=== PATIENT | male | born 1945 | race Caucasian/White ===

== ENCOUNTER 2024-05-17 08:09 | Outpatient (AMB) | payer MEDICARE, SELFPAY ==
--- NOTE | 2024-05-17 08:22 | A.OFFVIS_ITS ---
Vital Signs 05/17/24 09:00 Height 5 ft 4.5 in Weight 211 lb BMI 35.7 BP 132/76 Blood Pressure Location Lt brachial Position Sitting Pulse 62 Pulse Oximetry (%) 96 Oxygen Delivery Method Room Air Intake Visit Reasons: Hx Colon Polyps Intake Note: Patient new consult for Hx of Colon polyps/ 4th pre colonoscopy screening. Patient denies any GI issues. Doctor Podiatric Medicine Required: No Accompanied by: Self / Same As Patient Allergies No Known Allergies Allergy (Unverified 10/28/19 18:30) pollen Allergy (Unknown, Uncoded 01/27/19 00:00) Medication List - Last Reconciled 05/17/24 by Rachael Funez, [employer]- amlodipine 10 mg PO DAILY ammonium lactate 12% 1 appl topical DAILY aspirin (Adult Aspirin Regimen) 81 mg PO DAILY atorvastatin 10 mg PO BEDTIME bisacodyl (Dulcolax (bisacodyl)) 20 mg (4 x 5 mg) PO ONCE 1 day blood-glucose meter (FreeStyle Lite Meter kit) As directed clotrimazole 1% 1 appl topical BID doxazosin 8 mg PO BEDTIME enalapril maleate 20 mg PO DAILY gabapentin 300 mg PO DAILY hydrochlorothiazide 25 mg PO DAILY ibuprofen 800 mg PO Q8H metformin 500 mg PO DAILY metoprolol succinate ER 100 mg PO DAILY polyethylene glycol 3350 (Miralax) 238 grams PO ONCE polyvinyl alcohol 1.4% (Artificial Tears (polyvinyl alcohol)) 1 drp ophthalmic (eye) BID-QID PRN HPI HPI Hx Colon Polyps: Details: 79 year old? male with past medical history of hypertension, hyperlipidemia, diabetes, BPH, PVD is here today for pre colonoscopy screening.? Patient was sent to us by his PCP.? Last colonoscopy in January [address] Oshea, one tubular adenoma found and recommendation was made for 5 year follow-up.? Patient denies any gastrointestinal symptoms in the past or at present.? Admits to having trouble with acid reflux in the past and was on omeprazole, however has not needed it to take medication any more as his symptoms resolved. Patient denies any dyspepsia, dysphagia or odynophagia. Denies melena, hematochezia, unintentional weight loss or ribbon like stools. Patient's grandfather of colon cancer.? Denies history of difficulty with sedation or anesthesia in the past.? History of sleep apnea, uses CPAP occasionally. Denies any history of cardiac, renal, pulmonary, or hepatic disease.?? No history of infectious? diseases like hepatitis A, B, C, HIV or tuberculosis.? Patient is on low-dose aspirin [facility] Medical History (Updated 05/17/24 @ 09:30 by OSEI Rajan) PVD (peripheral vascular disease) BPH (benign prostatic hyperplasia) Diabetes mellitus Hyperlipidemia HTN (hypertension) Tubular adenoma of colon Surgical History (Updated 05/17/24 @ 09:09 by Bernadette Jarrett) History of colonoscopy Family History Paternal Grandfather Colon cancer Social History (Updated 05/17/24 @ 08:59 by Bernadette Jarrett) Household Members: Family Alcohol intake: former Patient Tobacco Use Status: Former Tobacco user Use of substances other than those prescribed or required for medical reasons: No Review of Systems Const Denies weight gain and Denies weight loss ENT Reports no additional complaints, Denies dysphagia and Denies odynophagia Card Reports no additional complaints Resp Reports no additional complaints GI Denies abdominal pain, Denies belching, Denies melena, Denies bloating, Denies change in bowel habits, Denies dysphagia, Denies excessive flatus, Denies dyspepsia, Denies heartburn, Denies diarrhea, Denies loose stools, Denies nausea, Denies odynophagia and Denies vomiting Reports no additional complaints Musc Reports no additional complaints Neuro Reports no additional complaints Psych Reports no additional complaints Endo Reports no additional complaints Physical Exam Vital Signs: Last Vital Signs Pulse 62 05/17/24 09:00 Pulse Ox 96 05/17/24 09:00 Oxygen Delivery Method Room Air 05/17/24 09:00 BMI result Body Mass Index 35.7 Const General: healthy appearing, no acute distress and well developed Nutritional Appearance: well nourished Orientation/consciousness: patient oriented x3 Resp Effort & Inspection: normal respiratory effort, able to speak in complete sentences, no tracheal deviation and symmetric chest movement Auscultation: clear to auscultation bilaterally Cardio Rate: regular rate GI Inspection: Yes normal to inspection and No distended Palpation (GI): Soft to palpation, not firm, nontender and No hepatosplenomegaly present Auscultation: normal bowel sounds General: Yes no CVA tenderness Back/Spine/Pelvis Back: no CVA tenderness Skin General skin exam: elasticity normal, turgor normal and dry skin Neuro General: patient oriented x3 Psych Appearance: grossly normal Mental Status: mental status grossly normal Assessment & Plan Assessment & Plan (1) Screen for colon cancer: Code(s): Z12.11 - Encounter for screening for malignant neoplasm of colon Plan Patient denies any GI, cardiac or respiratory symptoms.? Denies any issues with anesthesia in the past.? History of sleep apnea, uses CPAP sometimes.? No history infectious diseases in the past or present.? Not on any anticoagulation therapy.? Family history of CRC? Patient denies melena, hematochezia, unintentional weight loss or ribbon like stools.? Discussed at length the pre- procedure,? prep, diet & medications as well as what to expect prior, during and after the procedure.?? Stressed the importance of good bowel prep.? Recommended the use of Vaseline or Calmoseptine OTC & baby wipes with bowel movements to promote comfort.? ?Patient verbalizes understanding and agrees to plan of care.? He was given the opportunity to ask questions and all questions answered.? We will see him after the procedure.? Medications: New bisacodyl (Dulcolax (bisacodyl)) take 4 tabs at noon the day before your colonoscopy 20 mg (4 x 5 mg) PO ONCE 1 day 4 tabs 0RF Z12.11 - Encounter for screening for malignant neoplasm of colon polyethylene glycol 3350 (Miralax) As directed by gastroenterology department at [facility] 238 grams PO ONCE 238 grams 0RF Z12.11 - Encounter for screening for malignant neoplasm of colon Coding Level of Care Code New Pt Level 3 (94874) Diagnoses Screen for colon cancer Z12.11 Time Spent (min) 40 Comment 30 minutes spent with patient and additional 10 minutes spent reviewing his records
--- OUTSIDE RECORDS SUMMARY | 2024-05-17 08:24 | XMS_ITS | Data Portability ---
Author Organization [facility], [facility] Address [address] [place] [address] Care Team Providers Care Aircraft Detail Draftsperson Name Role Phone JAVED BRICE General Surgeon BALDEMAR VARMA Court Manager EVGENY LONG Primary Care Provider [phone] Assessment Encounter Date Assessment Date Assessment LastModified by Organization Details LastModified Time 12/02/2023 12/02/2023 We completed your Medicare Wellness exam today. This was an opportunity to assess your overall well being including your ability to care for yourself, your mobility, memory, mental health, as well as your safety. Vision and Hearing are senses that are critically important as we age. When impaired, they can contribute to memory loss, falls, and make it harder to drive, talk to family and friends, and engage in the world. Please get your vision checked yearly and your hearing checked when you start to notice hearing loss. We discussed approaches to lowering your risk of heart disease and stroke . Your blood pressure is at goal. Your cholesterol is at goal. We discussed cancer screening you may need as well as vaccines to prevent infections. Colon Cancer : Your risk of colon cancer is higher than average due to personal history of colon polyps. Due for colorectal screenin. If you are not planning to have a colonoscopy please screen with stool cards yearly. Prostate Cancer : PSA testing for ages 55-69 risks and benefits discussed not needed due to age. Influenza Vaccine : Flu shot yearly. Tetanus Vaccine : Every 10 years. Due: 2033. The following vaccines are available from your pharmacy: Pneumonia Vaccine : PCV20: once after age 65. Shingles Vaccine : 2 shots after age 50. Covid Vaccine : Make sure you have received the most up to date covid vaccine. Your personal health goal for the year is: exercise more [email or web address] Not available 12/05/2023 02:31:52 03/02/2024 03/02/2024 Diabetes: A1c of 6.9 since last year. Morning blood glucose levels range from 90-154, higher when consuming sweets. No episodes of hypoglycemia or severe hyperglycemia reported. Hypertension: Blood pressure well controlled; readings in the office have remained stable and the denies any symptoms. Patient is on amlodipine twice daily and Hydrochlorothiaz ady. Return in June after the colonoscopy to discuss the next action of plan along with the evaluation of your next A1C. Can return sooner with any new concerns or questions. Ocular hypertension: Encourage patient to attend follow-up appointment with opthamology and continue prescribed eye drops. GERD: Patient reported a few isolated episodes of heartburn, particularly at night. Currently on Omeprazole daily. F/U: 4 months [email or web address] Not available 03/02/2024 11:12:22 04/29/2024 04/29/2024 Type 2 diabetes mellitus with peripheral neuropathy, pain right foot [email or web address] Not available 04/29/2024 12:23:03 Plan of Treatment Reminders Order Date Submit Date Provider Last Modified By Organization Details Last Modified Time Details Appointments Compr craig rivas Eye Exam, 20 Min 2024 09:50A M Angela Brooks, MELISA Not available Not available Not available LAB Follo w-Up 2024 08:30A M [facility] Lab Not available Not available Not available Lavell ess Visit 30 2024 09:30A M CHRISTY LONG NP Not available Not available Not available Lab HbA1c (hemo globi n A1c), blood 2024 025 [facility], [address] [place], [address], 03/02/2024 10:42:28 hemog lobin A1C/h emogl obin total , QN, blood [address] [facility], [address] [place], [address], 12/02/2023 13:38:49 Referral podia trist refer ral - recur ring foot callu s media l foot 2023 [email or web address] Baldemar Varma DPM, [address] [place], [address], 12/03/2023 09:57:13 ophth layla ogist refer ral - glauc cornell suspe ct: OHTN Tmax 26 OU. borde rline RNFL OU on OCT. mild VF defec t OD , scatt ered defec ts OS. pleas e evalu ate. thank you 2023 [facility], [address] [place], [address], 02/26/2024 19:33:03 Procedures None recor ded. Surgeries None recor ded. Imaging None recor ded. Medication Orders metfo rmin 500 mg table t 2023 [id number], [address] [place], [place], [id number], 12/02/2023 12:57:47 Patient TargetsNo targets recorded. Patient Instructions Encounter Date Encounter Id Patient Instructions Last Modified By Organization Details Last Modified Time 04/29/2024 [id number] Dispensed order for x-ray evaluation. Patient declines prescription for antifungal cream. Will contact patient regarding results. jarod Not available 04/29/2024 12:23:37 Reason for Referral Tip Inserter Referral for Glaucoma suspect glaucoma suspect: OHTN Tmax 26 OU. borderline RNFL OU on OCT. mild VF defect OD , scattered defects OS. please evaluate. thank you Referring Physician: Angela Brooks, Optometry, Encounter Date: 11/11/2023 [address] Manager Referral for Foot callus recurring foot callus medial foot Referring Physician: Leena Ruiz, Family Medicine, Encounter Date: 12/02/2023 Results Created Date Observation Date Name Description Value Unit Range Abnormal Flag Note LastModifiedBy Organization Detail LastModifiedTime 10/20/19 24 10/21/2023 MICRO ALBUM IN/CR EATIN INE RATIO PANEL , URINE microalbumin 51.4 mg/L 1.3-20 .0 high Not Available [facility] [address] [place] [address], [address], 10/21/2023 09:40:55 10/20/19 24 10/21/2023 MICRO ALBUM IN/CR EATIN INE RATIO PANEL , URINE creatinine urine 660.9 mg/dL 30.0-1 25.0 high VERD= Verif ied by Dilut ion. Not Available [address], [address], 10/21/2023 09:40:55 10/20/19 24 10/21/2023 MICRO ALBUM IN/CR EATIN INE RATIO PANEL , URINE microalb/cre at ratio 7.8 mg/g_ creat 0.0-29 .0 Not Available [address], [address], 10/21/2023 09:40:55 10/20/19 24 10/21/2023 COMP. METAB OLIC PANEL glucose 146 mg/dL 70-100 high Not Available [address], [address], 10/21/2023 12:09:05 10/20/19 24 10/21/2023 COMP. METAB OLIC PANEL BUN 14 mg/dL 7-18 Not Available [address], [address], 10/21/2023 12:09:05 10/20/19 24 10/21/2023 COMP. METAB OLIC PANEL creatinine 1.2 mg/dL 0.8-1. 3 Not Available [address], [address], 10/21/2023 12:09:05 10/20/19 24 10/21/2023 COMP. METAB OLIC PANEL B/C 11.7 ratio Not Available [address], [address], 10/21/2023 12:09:05 10/20/19 24 10/21/2023 COMP. METAB OLIC PANEL GFR >=60ML /MIN mL/mi n normal >=60m L/min - Sushila l or midly reduc ed <60mL /min- Decre ased kidne y funct ion <15mL /min - Kidne y failu re [facility] calcu lates estim ated Glome rular Filtr ation Rate (eGFR ) using the Chron ic Kidne y Disea se Epide miolo gy Colla borat ion (CKD- EPI) Equat ion (Margarita r et. al 2020) as recom lindsey d by the Natio nal Kidne y Found ation . eGFR is based on age, serum creat inine , and sex. CKD-E PI does not calcu late eGFR by race, does not apply to child savanah (age <18 years ), and shoul d not be used in pregn monalisa. Not Available [address], [address], 10/21/2023 12:09:05 10/20/19 24 10/21/2023 COMP. METAB OLIC PANEL sodium 143 mmol/ L 136-14 5 Not Available [address], [address], 10/21/2023 12:09:05 10/20/19 24 10/21/2023 COMP. METAB OLIC PANEL potassium 3.9 mmol/ L 3.5-5. 1 Not Available [address], [address], 10/21/2023 12:09:05 10/20/19 24 10/21/2023 COMP. METAB OLIC PANEL chloride 102 mmol/ L 96-107 Not Available [address], [address], 10/21/2023 12:09:05 10/20/19 24 10/21/2023 COMP. METAB OLIC PANEL anion gap 12.2 5.0-15 .0 Not Available [address], [address], 10/21/2023 12:09:05 10/20/19 24 10/21/2023 COMP. METAB OLIC PANEL CO2 29 mmol/ L 21-32 Not Available [address], [address], 10/21/2023 12:09:05 10/20/19 24 10/21/2023 COMP. METAB OLIC PANEL calcium 9.2 mg/dL 8.5-10 .3 Not Available [address], [address], 10/21/2023 12:09:05 10/20/19 24 10/21/2023 COMP. METAB OLIC PANEL total protein 7.9 g/dL 6.4-8. 2 Not Available [address], [address], 10/21/2023 12:09:05 10/20/19 24 10/21/2023 COMP. METAB OLIC PANEL albumin 4.3 g/dL 3.4-5. 0 Not Available [address], [address], 10/21/2023 12:09:05 10/20/19 24 10/21/2023 COMP. METAB OLIC PANEL globulin 3.6 g/dL Not Available [address], [address], 10/21/2023 12:09:05 10/20/19 24 10/21/2023 COMP. METAB OLIC PANEL A/G 1.2 ratio 0.8-2. 0 Not Available [address], [address], 10/21/2023 12:09:05 10/20/19 24 10/21/2023 COMP. METAB OLIC PANEL total bilirubin 0.80 mg/dL 0.00-1 .00 Not Available [address], [address], 10/21/2023 12:09:05 10/20/19 24 10/21/2023 COMP. METAB OLIC PANEL AST 20 U/L 0-37 Not Available [address], [address], 10/21/2023 12:09:05 10/20/19 24 10/21/2023 COMP. METAB OLIC PANEL ALT 33 U/L 6-63 Not Available [address], [address], 10/21/2023 12:09:05 10/20/19 24 10/21/2023 COMP. METAB OLIC PANEL alk. phos. 57 U/L 50-136 Not Available [address], [address], 10/21/2023 12:09:05 12/02/19 24 12/02/2023 POCHA 1C POC HA1C 6.9 high Not Available [facility] [address] [place], [address], 12/02/2023 12:39:12 04/30/19 25 04/29/2024 XR, foot CLINIC AL HISTOR Y: Right foot pain TECHNI QUE: AP, obliqu e, and latera l views of the right foot obtain ed. COMPAR CASI: None. FINDIN GS: There is no acute fractu re or disloc ation. There is mild narrow ing of the right first metata rsal phalan geal joint. . There is extens evelyn hetero topic ossifi cation in the retroc alcane al region at the attach ment of the Achill es tendon . This can be seen with a histor y of trauma or microt rauma at the Achill es attach ment. There is a modera tely large planta r spur. IMPRES MARCELINA: Mild DJD first MTP joint. Small planta r spur. Hetero topic ossifi cation at the attach ment of the Achill es tendon consis tent with prior trauma Readivis [email or web address] Physic mallory: Jan Anderson [email or web address] [facility] (Imaging) [address], [place], [address], 04/30/2024 10:10:05 Result Notes None recorded. Problems Name Problem SNOMED Code Status Onset Date Resolution Date Notes Provider Name and Address Organization Details Recorded Time Benign essential hypertens ion 6494222 Active 2015 Zane Haque MD [address] [place] [address], [phone] , [facility] 6 11:10:25 Low back pain 125963101 Active 2015 Zane Haque MD [address] [place] [address], [address] , [facility] 6 11:12:31 Gastroeso phageal reflux disease 753381842 Active 2015 Zane Haque MD [address] [place] [address], [address] , [facility] 6 11:12:31 Benign prostatic hyperplas ia 087573515 Active 2015 Zane Haque MD [address] [place] [address], [address] , [facility] 6 11:12:34 Type 2 diabetes mellitus without complicat ion 597072656 Active 2016 Zane Haque MD [address] [place] [address], [phone] , [facility] 7 09:35:11 Morbid obesity 704064151 Active 2020 BMI > or = 35 plus other comorbidit ies. 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 Procedures Surgical History Date Name Laterality Status Provider Name and Address Organization Details Recorded Time 12/02/19 24 Medicare Wellness Visit completed Jazmin Luis MA [facility] 12/02/2023 12:11:54 12/02/19 24 Cardiovascular disease risk reduction counseling completed Leena maher PA-C [address] [place], [address], [facility] 12/05/2023 02:33:13 11/11/19 24 Gonioscopy completed Angela Brooks, OD [address] [place], [address], [facility] 11/13/2023 18:03:54 11/11/19 24 Pachymetry completed Angela Brooks, OD [address] [place], [address], [facility] 11/13/2023 18:04:15 10/29/19 24 Visual field comprehensive completed Angela Krugerile, OD [address] [place], [address], [facility] 11/13/2023 18:10:17 10/16/19 24 Gonioscopy completed Angela Brooks, OD [address] [place], [address], [facility] 10/20/2023 17:42:06 10/16/19 24 Optical Coherence Tomography (Optic Nerve) completed Angela Brooks, OD [address] [place], [address], [facility] 10/20/2023 17:41:24 08/21/19 23 Medicare Wellness Visit completed Mary Alice Monique Lisy [facility] 08/19/2022 14:09:20 08/21/19 23 Medicare Annual Wellness Visit completed Mary Alice Monique Lisy [facility] 08/20/2022 10:42:16 09/12/19 21 Medicare Wellness Visit completed Savi Traore LPN [facility] 09/11/2020 11:51:07 09/12/19 21 prevention-cardio vascular risk reduction counseling completed Savi Traore LPN [facility] 09/11/2020 11:51:07 09/12/19 21 prevention-annual alcohol misuse screening completed Savi Traore LPN [facility] 09/11/2020 11:51:07 07/28/19 21 Refraction completed Angela Brooks OD [address] [place], [address], [facility] 07/27/2020 10:50:44 05/16/19 21 prevention-cardio vascular risk reduction counseling completed Dru Grimes [facility] 05/15/2020 09:33:00 05/16/19 21 prevention-annual alcohol misuse screening completed Dru Grimes [facility] 05/15/2020 09:33:00 02/09/20 19 POC HA1C completed Lian Goodson [facility] 02/08/2019 08:16:38 10/15/19 18 Medicare Wellness Visit completed DAVID Contreras [facility] 10/14/2017 08:42:31 03/10/19 18 Medicare Wellness Visit completed Theresa Carmen [facility] 03/10/2017 09:48:07 01/19/20 16 Smoking cessation counseling completed Zane Haque MD [address] [place] [address], [address], [facility] 01/19/2016 11:17:01 01/19/20 16 Medicare Wellness Visit completed Antoinette Bautista [facility] 01/19/2016 10:47:55 07/28/19 16 Refraction completed Liberty Todd [facility] 07/28/2015 11:30:23 Imaging Results Imaging Date Name Status LastModified by Organiz ation Details LastModified Time 04/29/2024 XR, foot completed [email or web address] [facility] (Imaging) [address] [place], [address], 04/30/2024 10:10:05 Procedure Notes None recorded. Medical Equipment None Reported. Allergies No known drug allergies Medications Name Sig Start Date Stop Date Status Note LastModified by Organization Details LastModified Time metformin 500 mg tablet TAKE 1 TABLET BY MOUTH TWICE DAILY active Not Available Not Available No t Available neomycin-p olymyxin-h ydrocort 3.5 mg/mL-10,0 00 unit/mL-1 % ear solution 07/16 completed Not Available Not Available Not Available ammonium lactate 12 % lotion Apply 1 applicat ion every day by topical route. 07/16 completed 07/16/16- pt no longer using.s g Not Available Not Available Not Available atorvastat in 10 mg tablet TAKE 1 TABLET BY MOUTH EVERY DAY active Not Available Not Available No t Available azithromyc in 250 mg tablet 01/18 completed Not Available Not Available Not Available ibuprofen 800 mg tablet PRN active Not Available Not Available Not Available metoprolol tartrate 100 mg tablet TAKE 1 TABLET BY MOUTH TWICE DAILY active Not Available Not Available No t Available enalapril maleate 20 mg tablet TAKE 1 TABLET BY MOUTH TWICE DAILY active Not Available Not Available No t Available FreeStyle Lancets 28 gauge USE TO CHECK BLOOD SUGARS ONCE TO TWICE A DAY active Not Available Not Available No t Available aspirin 81 mg tablet,del ayed release TAKE 1 TABLET BY MOUTH EVERY DAY 2024 active Not Available Not Available Not Avai lable tramadol 50 mg tablet Take 1 tablet every day by oral route as needed. 09/10 completed Not Available Not Available Not Available Deep Sea Nasal 0.65 % spray aerosol 10/14 completed Not Available Not Available Not Available doxazosin 8 mg tablet TAKE 1 TABLET BY MOUTH EVERY DAY active Not Available Not Available No t Available amlodipine 10 mg tablet TAKE 1 TABLET BY MOUTH EVERY DAY active Not Available Not Available No t Available doxycyclin e monohydrat e 100 mg capsule TAKE 1 CAPSULE BY MOUTH TWICE DAILY FOR 7 DAYS 09/11 completed Not Available Not Available Not Available clotrimazo le-betamet hasone 1 %-0.05 % topical cream APPLY TOPICALL Y TO THE AFFECTED AND SURROUND ING AREAS TWICE DAILY IN THE MORNING AND IN THE EVENING FOR 2 WEEKS active Not Available Not Available No t Available gabapentin 300 mg capsule Take 1 capsule every day by oral route at bedtime. 2017 active Not Available Not Available Not Avai lable omeprazole 20 mg capsule,de layed release TAKE 1 CAPSULE BY MOUTH EVERY DAY NEEDED active Not Available Not Available No t Available ammonium lactate 12 % topical cream [apply bid], rub in thorough ly to dry skin on feet active no longer using 4/ES Not Available Not Available Not Available hydrochlor othiazide 25 mg tablet TAKE 1 TABLET BY MOUTH EVERY DAY active Not Available Not Available No t Available ibuprofen 600 mg tablet Take 1 tablet 3 times a day by oral route as needed for 90 days. 11/02 completed using 800mg 06/15/21 am Not Available Not Available Not Available ketoconazo le 2 % topical cream YVONNE EXT AA QD 07/16 completed Not Available Not Available Not Available clotrimazo le 1 % topical cream Apply 1 applicat ion twice a day by topical route for 14 days. 2017 active PRN Not Available Not Available Not Avai lable Artificial Tears (polyvinyl alcohol) 1.4 % eye drops Apply 2 drops 3 times a day by ophthalm ic route as needed. 2017 active Not Available Not Available Not Avai lable neomycin-p olymyxin-h ydrocort 3.5 mg-10,000 unit/mL-1 % ear drops,susp INSTILL 4 DROPS INTO AFFECTED EAR(S) BY OTIC ROUTE 3 TIMES PER DAY for 5 DAYS 03/19 completed Not Available Not Available Not Available FreeStyle Lite Meter kit USE TO CHECK BLOOD SUGAR UTD active Not Available Not Available No t Available FreeStyle Lite Strips TEST ONCE DAILY DIRECTED active Not Available Not Available No t Available GaviLyte-G 236 gram-22.74 gram-6.74 gram-5.86 gram oral solution MIX AND DRINK UTD 05/15 completed Not Available Not Available Not Available Fluzone High-Dose 2015- (PF) 180 mcg/0.5 mL intramuscu lar syringe TO BE ADMINIST ERED BY PHARMACI ST FOR IMMUNIZA TION active Not Available Not Available No t Available Shingrix (PF) 50 mcg/0.5 mL intramuscu lar suspension , kit ADM 0.5ML IM UTD 05/15 completed Not Available Not Available Not Available Vitals Date Recorded Body height Body mass index (BMI) Body weight Heart rate Oxygen saturation Oxygen saturation in Arterial blood by Pulse oximetry Systolic blood pressure Diastolic blood pressure Provider Name and Address Organization Details Last Updated DateTime 4 163.83 cm 38.2 kg/m2 139229. 88 g 56 /min 97 % 97 % 126 mm[Hg] 80 mm[Hg] Jazmin Luis MA [facility] 4 12:28:03 Date Recorded Body height Body mass index (BMI) Body weight Oxygen saturation Oxygen saturation in Arterial blood by Pulse oximetry Heart rate Body temperature Systolic blood pressure Diastolic blood pressure Provider Name and Address Organization Details Last Updated DateTime 5 163.83 cm 36.6 kg/m2 28228.7 5 g 97 % 97 % 58 /min 97.5 [degF] 130 mm[Hg] 80 mm[Hg] Kim Mari MA [facility] 5 10:26:37 Date Recorded Body height Body mass index (BMI) Body weight Provider Name and Address Organization Details Last Updated DateTime 04/29/2024 163.83 cm 36.5 kg/m2 90913.95 g Ondina Xiong LPN [facility] 04/29/2024 11:49:33 Social History Question Answer Notes LastModified by Organizat ion Details LastModified Time Tobacco Smoking Status Former Smoker quit 12 years [facility] 12:25:28 What Is Your Level Of Alcohol Consumption? None Information not available 07/17/2015 Do You Wear A Helmet When Biking? No [email or web address] Information not available 09/11/2020 What Is Your Level Of Caffeine Consumption? Moderate 1 Cup AM [email or web address] Information not available 05/15/2020 How Much Tobacco Do You Chew? None [email or web address] Information not available 04/17/2016 What Type Of Diet Are You Following? REGULAR Information not available 07/17/2015 Which Illicit Or Recreational Drugs Have You Used? No Information not available 10/14/2017 Do You Or Have You Ever Used E-cigarettes Or Vape? Never Used Electronic Cigarettes Information not available 11/09/2018 What Is Your Occupation? Retired Information not available 10/14/2017 Have There Been Any Changes To Your Family Or Social Situation? No Information not available 08/20/2022 When Did You Quit Smoking? 6-10yearssinc [email or web address] Information not available 11/09/2018 How Many Days In The Past Year Have You Had A Heavy Drinking Consumption (4+ Female, 5+ Male)? 0 [facility] not available 07/17/2015 Are There Any Guns Present In Your Home? No [facility] Information not available 07/17/2015 Do You Use Insect Repellent Routinely? Yes [email or web address] Information not available 09/11/2020 Live Alone Or With Others? With Others [facility] Information not available 07/17/2015 Patient Has Health Care Proxy Signed And In Chart No [email or web address] Information not available 11/13/2017 CCM Consent Discussion 06/15/2021 [email or web address] Information not available 07/19/2021 Marital Status [facility] Info rmation not available 07/17/2015 What Was The Date Of Your Most Recent Tobacco Screening? 03/02/2024 [email or web address] Information not available 03/02/2024 How Many Children Do You Have? 6 One Child [facility] Information not available 07/17/2015 What Is Your Relationship Status? Lives With Information not available 08/20/2022 Do You Use Your Seat Belt Or Car Seat Routinely? Yes [email or web address] Information not available 09/11/2020 Seat Belts Used Routinely Yes [facility] Information not available 07/17/2015 Smoke Alarm In Home Yes [facility] Information not available 07/17/2015 Do You Have Smoke And Carbon Monoxide Detectors In Your Home? Yes [email or web address] Information not available 12/02/2023 Are You Passively Exposed To Smoke? No [email or web address] Information not available 09/11/2020 Do You Or Have You Ever Used Smokeless Tobacco? Never Used Smokeless Tobacco Information not available 11/09/2018 How Much Tobacco Do You Smoke? 0.5 PPD [email or web address] Information not available 12/02/2023 General Stress Level Medium Information not available 10/14/2017 Do You Use Any Illicit Or Recreational Drugs? No [email or web address] Information not available 12/02/2023 Do You Use Sunscreen Routinely? Yes Information not available 09/11/2020 Do You Or Have You Ever Used Any Other Forms Of Tobacco Or Nicotine? No [email or web address] Information not available 12/02/2023 Sex: Male Functional Status None recorded. Mental Status None recorded. Family History Nothing Reported. Medical History Condition Response Diabetes Type II Y Colon Polyps Y Hyperlipidemia Y Heart Disease N Hypertension Y Glaucoma Y Chronic Back Pain Y Immunizations Vaccine Type Date Status Note Provider Nam e and Address Organization Details Recorded Time Influenza, high-dose, trivalent, PF 6 completed Not Available [facility] 02/27/2019 02:33:34 Pneumococcal conjugate PCV 13 6 completed Not Available [facility] 02/27/2019 02:20:41 Influenza, high-dose, trivalent, PF 7 completed Not Available [facility] 02/27/2019 02:22:00 pneumococcal polysaccharide PPV23 7 completed Not Available [facility] 02/27/2019 02:22:28 influenza, unspecified formulation 5 [facility] 10:35:33 Tdap 4 completed [facility] 08/11/2015 09:00:39 Hep B, unspecified formulation 3 completed [facility] 08/11/2015 09:01:22 Hep B, unspecified formulation 3 completed [facility] 08/11/2015 09:01:41 Hep A, adult 3 completed [facility] 08/11/2015 09:02:03 influenza, unspecified formulation 8 completed [facility] 01/16/2018 10:50:08 Influenza, split virus, quadrivalent, preservative 9 completed Zane Haque MD [address] [place] [address], [id number] 11/09/2018 09:37:05 zoster recombinant 0 completed Savi Traore LPN [facility] 09/11/2020 13:57:44 zoster recombinant 0 completed [facility] 09/11/2020 15:46:40 Td (adult), 2 Lf tetanus toxoid, preservative free, adsorbed 4 completed Leena Ruiz PA-C [address] [place] [address], [id number], [facility] 06/16/2023 10:02:47 Influenza, split virus, quadrivalent, preservative 1 completed [facility] 03/19/2021 08:56:36 COVID-19, mRNA, LNP-S, PF, 30 mcg/0.3 mL dose 1 completed [facility] 08/08/2021 09:06:32 COVID-19, mRNA, LNP-S, PF, 30 mcg/0.3 mL dose 1 completed [facility] 08/08/2021 09:06:40 COVID-19, mRNA, LNP-S, PF, 30 mcg/0.3 mL dose 2 completed [facility] 08/08/2021 09:06:55 COVID-19, mRNA, LNP-S, PF, 30 mcg/0.3 mL dose 2 completed [facility] 08/08/2021 09:07:07 influenza, unspecified formulation 3 completed [facility] 01/15/2023 09:21:00 influenza, unspecified formulation 4 completed [facility] 12/02/2023 12:26:57 Past Encounters Encounter ID Performer Location Encounter Start Date Encounter Closed Date Diagnosis/Indication Diagnosis SNOMED-CT Code Diagnosis ICD10 Code Diagnosis Note [id number] Zane Haque MD , [facility], [address] [place] [address] 07/17/2015 10:20:49 07/17/2015 11:05:53 Benign essential hypertension 8955040 I10 BP slightly elevated. Requested old records from [facility]. Will continue his anti-hyper tensive medication s. Check FLP and CMP. Denies CP/SOB/DRAKE . Benign pro static hyperplasia 857501507 N40.0 Patient with BPH on Doxazosin. No current urine obstructiv e symptoms. Denies hematuria or dysuria. Check PSA. Gastroesop hageal reflux disease 380205294 K21.9 Stable on occasional use of Omeprazole . No current abdominal pain. Denies BRBPR or melena. Low back pain 484328174 M54.5 Patient with chronic LBP. Undergone PT at [facility] without improvemen t. Will check L-spine X-day. Consider referral to Physiatry. Dry skin dermatitis 2600 35500 L85.3 Stable on Lactate lotion. 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 4 [id number] Zane Haque MD , [facility], [address] [place] [address] 10/20/2015 10:35:36 10/20/2015 11:19:29 Benign essential hypertension 1017499 I10 BP well controlled . Continue with current medication s and low salt diet. Active or passive immunization 850782100 Z23 Benign pro static hyperplasia 658111768 N40.0 Patient with BPH on Doxazosin. No current urine obstructiv e symptoms. Denies hematuria or dysuria. PSA within normal. Gastroesop hageal reflux disease 884034760 K21.9 Stable on occasional use of Omeprazole . No current abdominal pain. Denies BRBPR or melena. Low back pain 348677248 M54.5 Patient with chronic LBP. Undergone PT at [facility]. X-ray showed moderately severe facet arthropath y lower lumbar spine. Consider referral to Physiatry if symptoms worsen. Sleep apnea 52111991 G47 .30 Patient with increased snoring and sleep apnea symptoms noticed by his partner. Also with increased daytime somnolence . Referral for sleep study. Tinea cruris 892215071 B 35.6 Involving the bilateral inguinal areas. Advised to keep the areas clean and dry. Treat with Clotrimazo le topical. Hyperglycemia 87743175 R 73.9 Elevated FBS. Will check Hgb A1c (separatel y ordered). Leukopenia 51178752 D72. 819 Reports recent URI symptoms. Repeat CBC ordered. [id number] Zane Haque MD , [facility], [address] [place] [address] 01/19/2016 10:37:04 01/22/2016 12:46:45 Adult health examination 388463013 Z00.00 See Risk Assessment and Lifestyle Change Counseling section above. Home/vehic le/sexual safety reviewed. States his last colonoscop y was 3 years ago at [facility] (Dr. Brice). Recommende d surveillan ce in 5 years. Routine eye exam and dental care discussed. Influenza, Tdap and PNA vaccines UTD. Counseling 304533296 Z71 .9 Sleep apnea 05359638 G47 .30 Patient with increased snoring and sleep apnea symptoms noticed by his partner. Also with increased daytime somnolence . Had sleep study done last week with LUTHER diagnosis. Recommende d CPAP with 9cm H2O setting. Being arranged by Sleep Medicine. Gastroesop hageal reflux disease 249356443 K21.9 Stable on occasional use of Omeprazole . No current abdominal pain. Denies BRBPR or melena. Tinea cruris 489124570 B 35.6 Involving the bilateral inguinal areas. Advised to keep the areas clean and dry. Treat with Clotrimazo le topical. Benign ess ential hypertension 3718550 I10 BP well controlled . Continue with current medication s and low salt diet. Low back pain 303446678 M54.5 Patient with chronic LBP. Undergone PT at [facility]. X-ray showed moderately severe facet arthropath y lower lumbar spine. Consider referral to Physiatry if symptoms worsen. Benign pro static hyperplasia 287922037 N40.0 Patient with BPH on Doxazosin. No current urine obstructiv e symptoms. Denies hematuria or dysuria. PSA within normal. Type 2 kayley betes mellitus without complication 523647058 E11.9 Previously had elevated FBS. Hgb A1c 6.7 (10/2015), but now 6.5 (01/2016). Lifestyle modificati on recommende d. Cigarette smoker 3794769 7 F17.210 Encouraged cessation. Goal setting and behavioral modificati on discussed. Tobacco user 949461819 Z 72.0 Screening for malignant neoplasm of lung 829326015 Z12.2 Long history of tobacco use with 30 pack year history. Quit 3 years ago. Will check low-dose Chest CT for lung CA screening. Balanitis 35230217 N48.1 Encouraged to use Clotrimazo le. Venereal d isease screening 324495909 Z11.3 Safe sex discussed. Patient gives permission to send normal results via patient portal or by mail. [id number] Zane Haque MD , [facility], [address] [place] [address] 04/17/2016 09:10:02 04/17/2016 09:42:03 Sleep apnea 11522658 G47.30 Patient with increased snoring and sleep apnea symptoms noticed by his partner. Also with increased daytime somnolence . Had sleep study done last week with LUTHER diagnosis. Recommende d CPAP with 9cm H2O setting. Being arranged by Sleep Medicine. Gastroesop hageal reflux disease 940490627 K21.9 Stable on occasional use of Omeprazole . No current abdominal pain. Denies BRBPR or melena. Tinea cruris 021242499 B 35.6 Involving the bilateral inguinal areas. Advised to keep the areas clean and dry. Using Ketoconazo le topical. Benign ess ential hypertension 5475220 I10 BP well controlled . Continue with current medication s and low salt diet. Low back pain 105021240 M54.5 Patient with chronic LBP. Undergone PT at [facility]. X-ray showed moderately severe facet arthropath y lower lumbar spine. Consider referral to Physiatry if symptoms worsen. Benign pro static hyperplasia 490342002 N40.0 Patient with BPH on Doxazosin. No current urine obstructiv e symptoms. Denies hematuria or dysuria. PSA within normal. Type 2 kayley betes mellitus without complication 633565821 E11.9 Previously had elevated FBS. Hgb A1c 6.7 (10/2015), but now 6.5 (01/2016). Lifestyle modificati on recommende d. Cigarette smoker 5170707 7 F17.210 Completely quit smoking. 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 Tobacco user 389453465 Z 72.0 Screening for malignant neoplasm of lung 931312602 Z12.2 Long history of tobacco use with 30 pack year history. Quit 3 years ago. Ordered low-dose Chest CT for lung CA screening. [id number] Zane Haque MD , [facility], [address] [place] [address] 07/16/2016 09:18:34 07/16/2016 09:51:43 Sleep apnea 56254788 G47.30 Patient with increased snoring and sleep apnea symptoms noticed by his partner. Also with increased daytime somnolence . Had sleep study done with LUTHER diagnosis. Recommende d CPAP with 9cm H2O setting. Being arranged by Sleep Medicine/C CA. Gastroesop hageal reflux disease 332342000 K21.9 Stable on occasional use of Omeprazole . No current abdominal pain. Denies BRBPR or melena. Benign ess ential hypertension 8304392 I10 BP well controlled . Continue with current medication s and low salt diet. Low back pain 567664458 M54.5 Patient with chronic LBP. Undergone PT at [facility]. X-ray showed moderately severe facet arthropath y lower lumbar spine. Will consider referral to Physiatry if symptoms worsen, but patient would like to defer at this time. Will treat with Tramadol prn. Advised to use the medication sparingly. Benign pro static hyperplasia 372435700 N40.0 Patient with BPH on Doxazosin. No current urine obstructiv e symptoms. Denies hematuria or dysuria. PSA within normal. Type 2 kayley betes mellitus without complication 471284695 E11.9 Previously had elevated FBS. Hgb A1c 6.7 (10/2015), but now 6.5 (01/2016). Home BS well controlled . Check Hgb A1c today. Lifestyle modificati on recommende d. Cigarette smoker 5129955 7 F17.210 Completely quit smoking. 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 [id number] VESTA Castillo , [facility], [address] [place] [address] 09/10/2016 07:51:44 09/10/2016 08:46:36 Type 2 diabetes mellitus without complication 250886346 E11.9 Will start METFORMIN 500 mg BID, discussed use of med as well as potential adverse SE, continue to check BS at home TID, labs ordered as written below & plan to f/u w/FK as scheduled. Agrees w/plan [id number] Zane Haque MD , [facility], [address] [place] [address] 10/11/2016 10:01:53 10/11/2016 10:44:37 Type 2 diabetes mellitus without complication 456853718 E11.9 Previously had Hgb A1c 6.5 (01/2016). Unfortunat [place], he failed to control his BS with lifestyle modificati on as his Hgb A1c went up to 9.2 (09/2016). Fasting BS has been ranging 110-180 at home since starting his Metformin. Initial loose stool with Metformin, but better tolerated now. Referred to DM Educator, but declined as he states his has been a diabetic for over 30 years. Advised to continue with low carbohydra te diet and exercise. Check Hgb A1c in 3 months. Lifestyle modificati on recommende d. Active or passive immunization 512900738 Z23 [id number] Zane Haque MD , [facility], [address] [place] [address] 01/10/2017 10:34:44 01/10/2017 11:18:58 Active or passive immunization 857276577 Z23 Type 2 kayley betes mellitus without complication 677107364 E11.9 Recent Hgb A1c 7.4 (12/2016). Fasting BS has been ranging 110-180 at home since starting his Metformin. Initial loose stool with Metformin, but better tolerated now. Referred to DM Educator, but declined as he states his has been a diabetic for over 30 years. Advised to continue with low carbohydra te diet and exercise. Check Hgb A1c in 3 months. Lifestyle modificati on recommende d. Gastroesop hageal reflux disease 655105846 K21.9 Stable on occasional use of Omeprazole . No current abdominal pain. Denies BRBPR or melena. Mixed hyperlipidemia 267 218084 E78.2 LDL fairly well controlled , but low HDL. Benign ess ential hypertension 1010808 I10 BP well controlled . Continue with current medication s and low salt diet. Benign pro static hyperplasia 615941539 N40.0 Previous PSA within normal. Dry eyes 117694840 H04.1 29 [id number] Zane Haque MD , [facility], [address] [place] [address] 03/10/2017 09:32:04 03/10/2017 10:23:21 Adult health examination 348800805 Z00.00 See Risk Assessment and Lifestyle Change Counseling section above. Home/vehic le/sexual safety reviewed. States his last colonoscop y was 4 years ago at [facility] (Dr. Brice). Recommende d surveillan ce in 5 years. Routine eye exam and dental care discussed. Influenza, Tdap and PNA vaccines UTD. Counseling 098032779 Z71 .9 Type 2 kayley betes mellitus without complication 400361694 E11.9 Recent Hgb A1c 7.4 (12/2016). Fasting BS has been ranging 99-143 at home since starting his Metformin. Initial loose stool with Metformin, but better tolerated now. Referred to DM Educator, but declined as he states his has been a diabetic for over 30 years. Advised to continue with low carbohydra te diet and exercise. Check Hgb A1c. Lifestyle modificati on recommende d. Gastroesop hageal reflux disease 329736735 K21.9 Stable on occasional use of Omeprazole . No current abdominal pain. Denies BRBPR or melena. Mixed hyperlipidemia 267 937728 E78.2 LDL fairly well controlled , but low HDL. Lifestyle modificati on discussed. Benign ess ential hypertension 0015335 I10 BP well controlled . Continue with current medication s and low salt diet. Benign pro static hyperplasia 500623928 N40.0 Previous PSA within normal. No worsening symptoms of urinary obstructio n. Dry eyes 492051263 H04.1 29 Dermatophytosis 55353613 B35.9 Involving bilateral axillary areas. Advised to keep the areas clean and dry. Clotrimazo le 1% topical. [id number] Zane Haque MD , [facility], [address] [place] [address] 04/11/2017 09:26:11 04/11/2017 12:54:58 Gastroesophageal reflux disease 047047791 K21.9 Stable on occasional use of Omeprazole . No current abdominal pain. Denies BRBPR or melena. Mixed hyperlipidemia 267 772783 E78.2 LDL fairly well controlled , but low HDL. Lifestyle modificati on discussed. Benign ess ential hypertension 7190468 I10 BP well controlled . Continue with current medication s and low salt diet. Benign pro static hyperplasia 690213064 N40.0 Previous PSA within normal. No worsening symptoms of urinary obstructio n. Dermatophytosis 53646929 B35.9 Involving bilateral axillary areas. Advised to keep the areas clean and dry. Clotrimazo le 1% topical. Type 2 kayley betes mellitus without complication 038040164 E11.9 Recent Hgb A1c 7.0 (02/2017). Fasting BS has been ranging 120-140 at home since starting his Metformin. Initial loose stool with Metformin, but better tolerated now. Referred to DM Educator, but declined as he states his has been a diabetic for over 30 years. Advised to continue with low carbohydra te diet and exercise. Lifestyle modificati on recommende d. Low back pain 091840869 M54.5 Patient with chronic LBP. Undergone PT at [facility]. X-ray showed moderately severe facet arthropath y lower lumbar spine. Will consider referral to Physiatry if symptoms worsen, but patient would like to defer at this time. [id number] Stvee Barone OD [facility], [facility] [address] [place] [address] 07/04/2017 08:26:23 07/04/2017 09:14:20 Hypermetropia 84279678 H52.03 Regular astigmatism 6890 5002 H52.223 Presbyopia 30946390 H52. 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 No current abdominal pain. Denies BRBPR or melena. Mixed hyperlipidemia 267 980669 E78.2 LDL fairly well controlled , but low HDL. Lifestyle modificati on discussed. Benign ess ential hypertension 4239127 I10 BP well controlled . Continue with current medication s and low salt diet. Benign pro static hyperplasia 531257252 N40.0 Previous PSA within normal. No worsening symptoms of urinary obstructio n. Dermatophytosis 05706337 B35.9 Involving bilateral axillary areas. Advised to keep the areas clean and dry. Clotrimazo le 1% topical. Type 2 kayley betes mellitus without complication 065835895 E11.9 Recent Hgb A1c 7.0 (02/2017). Fasting BS has been ranging 120-140 at home since starting his Metformin. Initial loose stool with Metformin, but better tolerated now. Referred to DM Educator, but declined as he states his has been a diabetic for over 30 years. Advised to continue with low carbohydra te diet and exercise. Lifestyle modificati on recommende d. Low back pain 208734679 M54.5 Patient with chronic LBP. Undergone PT at [facility]. X-ray showed moderately severe facet arthropath y lower lumbar spine. Will consider referral to Physiatry if symptoms worsen, but patient would like to defer at this time. Neuropathy 932498233 G62 .9 Diffuse pain of BLE and shoulder. Took 's Oxycodone intermitte ntly. Advised to stop. Trial of Gabapentin discussed. Potential adverse effects of the medication reviewed. Foot callus 544070087 L8 4 [id number] Baldemar Varma DPM Podiatry, [facility] [address] [place] [address] 11/06/2017 08:53:52 11/11/2017 07:11:01 Type 2 diabetes mellitus without complication 646528947 E11.49 Foot callus 470426475 L8 4 [id number] Zane Haque MD , [facility], [address] [place] [address] 01/16/2018 10:38:10 01/16/2018 11:10:40 Benign essential hypertension 1317688 I10 continue to work on diet, exercise, and lowering salt intake as discussed. Blood pressure not at goal. No headaches. No dizziness. Patient reports only taking hydrochlor othiazide 3-4 times a week. Discussed importance of taking medication s as prescribed . Mixed hyperlipidemia 267 261240 E78.2 continue to work on diet and exercise as discussed Gastroesop hageal reflux disease 902343804 K21.9 Stable on occasional use of Omeprazole . No current abdominal pain. Denies BRBPR or melena. Benign pro static hyperplasia 215016894 N40.0 Previous PSA within normal. No worsening symptoms of urinary obstructio n. Dermatophytosis 48559745 B35.9 Involving bilateral axillary areas. Advised to keep the areas clean and dry. Clotrimazo le 1% topical. Type 2 kayley betes mellitus without complication 507104904 E11.9 Recent Hgb A1c 7.4 (10/2017). Fasting BS has been ranging 116-159 at home. Initial loose stool with Metformin, but better tolerated now. Referred to DM Educator, but declined as he states his has been a diabetic for over 30 years. Advised to continue with low carbohydra te diet and exercise. Lifestyle modificati on recommende d. Taking Meformin once a day. Will repeat labs. Low back pain 873978767 M54.5 Patient with chronic LBP. Undergone PT at [facility]. X-ray showed moderately severe facet arthropath y lower lumbar spine. Will consider referral to Physiatry if symptoms worsen, but patient would like to defer at this time. [id number] Zane Haque MD , [facility], [address] [place] [address] 06/01/2018 11:51:01 06/01/2018 12:38:52 Benign essential hypertension 3458845 I10 continue to work on diet, exercise, and lowering salt intake as discussed. Blood pressure not at goal. No headaches. No dizziness. Patient reports only taking hydrochlor othiazide 3-4 times a week. Discussed importance of taking medication s as prescribed . Mixed hyperlipidemia 267 449562 E78.2 continue to work on diet and exercise as discussed Gastroesop hageal reflux disease 681342012 K21.9 Stable on occasional use of Omeprazole . No current abdominal pain. Denies BRBPR or melena. Benign pro static hyperplasia 422507046 N40.0 Previous PSA within normal. No worsening symptoms of urinary obstructio n. Type 2 kayley betes mellitus without complication 336365358 E11.9 Recent Hgb A1c 6.9 (01/16/18) from 7.4 (10/2017). Per pt, FBS low 100s Taking Metformin intermitte ntly, educated to take daily. Advised to continue with low carbohydra te diet and exercise. Lifestyle modificati on recommende d. Will repeat labs 08/2018. Low back pain 368740008 M54.5 Patient with chronic LBP. Undergone PT at [facility]. X-ray showed moderately severe facet arthropath y lower lumbar spine. Will consider referral to Physiatry if symptoms worsen, but patient would like to defer at this time. Screening for malignant neoplasm of colon 536627663 Z12.[address] Javed Brice at [facility] for colonoscop y in 2013. Recommende d to repeat in 5 years. Will refer. Records requested as well. Active or passive immunization 487325174 Z23 [id number] Steve Barone, [facility], [address] [address] 07/10/2018 08:07:46 07/10/2018 09:22:58 Presbyopia 11398006 H52.4 Type 2 kayley betes mellitus without complication 792045648 E11.9 No retinopath y or other ocular manifestat ions of diabetes Cortical s enile cataract 80688740 H25.013 Cataract consistent with decreased BCVA. Not affecting ADL at this time. Hypermetropia 33948316 H 52.03 Regular astigmatism 6890 5002 H52.223 Ocular hypertension 4210 003 H40.053 mild and stable, optic nerves healthy, no other risk factorsfol low yearly [id number] Zane Haque MD , [facility], [address] [place] [address] 11/09/2018 08:51:47 11/09/2018 09:42:55 Benign essential hypertension 2182931 I10 Continue to work on diet, exercise, and lowering salt intake as discussed. Blood pressure not at goal. No headaches. No dizziness. Patient reports only taking hydrochlor othiazide 3-4 times a week. Discussed importance of taking medication s as prescribed . Mixed hyperlipidemia 267 347650 E78.2 Continue to work on diet and exercise as discussed Gastroesop hageal reflux disease 884693060 K21.9 Stable on occasional use of Omeprazole . No current abdominal pain. Denies BRBPR or melena. Benign pro static hyperplasia 545930132 N40.0 Previous PSA within normal. No worsening symptoms of urinary obstructio n. Type 2 kayley betes mellitus without complication 365983255 E11.9 Recent Hgb A1c improved to 6.8 (08/2018) from 7.4 (10/2017). Previously taking Metformin intermitte ntly, educated to take daily. Advised to continue with low carbohydra te diet and exercise. Lifestyle modificati on recommende d. Low back pain 695829973 M54.5 Patient with chronic LBP. Undergone PT at [facility]. X-ray showed moderately severe facet arthropath y lower lumbar spine. Will consider referral to Physiatry if symptoms worsen, but patient would like to defer at this time. Screening for malignant neoplasm of colon 825898626 Z12.[address] Javed Brice at [facility] for colonoscop y in 2013. Recommende d to repeat in [address] Brice per patient request. Records requested as well. [id number] Zane Haque MD , [facility], [address] [place] [address] 02/08/2019 07:21:10 02/08/2019 11:35:28 Active or passive immunization 856597184 Z23 Benign ess ential hypertension 9307791 I10 Continue to work on diet, exercise, and lowering salt intake as discussed. Blood pressure not at goal. No headaches. No dizziness. Patient reports only taking hydrochlor othiazide 3-4 times a week. Discussed importance of taking medication s as prescribed . Mixed hyperlipidemia 267 140388 E78.2 Continue to work on diet and exercise as discussed Gastroesop hageal reflux disease 145430255 K21.9 Stable on occasional use of Omeprazole . No current abdominal pain. Denies BRBPR or melena. Benign pro static hyperplasia 919142456 N40.0 Previous PSA within normal. No worsening symptoms of urinary obstructio n. Type 2 kayley betes mellitus without complication 678993376 E11.9 Recent Hgb A1c improved to POC A1c 6.5 ( 9) from 6.8 (08/2018). Previously taking Metformin intermitte ntly, educated to take daily. Advised to continue with low carbohydra te diet and exercise. Lifestyle modificati on recommende d. Low back pain 926139712 M54.5 Patient with chronic LBP. Undergone PT at [facility]. X-ray showed moderately severe facet arthropath y lower lumbar spine. Will consider referral to Physiatry if symptoms worsen, but patient would like to defer at this time. Screening for malignant neoplasm of colon 836762044 Z12.[address] Javed Brice at [facility] for colonoscop y in 2013. Recommende d to repeat in [address] Brice per patient request. Records requested as well. [id number] Zane Haque MD , [facility], [address] [place] [address] 05/14/2019 13:49:45 05/17/2019 15:35:13 Benign essential hypertension 8912580 I10 Continue to work on diet, exercise, and lowering salt intake as discussed. No headaches. No dizziness. Previously had borderline BP. Has home BP machine. Encouraged to check. Discussed importance of taking medication s as prescribed . Mixed hyperlipidemia 267 093679 E78.2 Continue to work on diet and exercise as discussed Gastroesop hageal reflux disease 336983398 K21.9 Stable on occasional use of Omeprazole . No current abdominal pain. Denies BRBPR or melena. Benign pro static hyperplasia 628152734 N40.0 Previous PSA within normal. No worsening symptoms of urinary obstructio n. Type 2 kayley betes mellitus without complication 198574011 E11.9 Recent Hgb A1c improved to POC A1c 6.5 () from 6.8 (08/2018). Previously taking Metformin intermitte ntly, educated to take daily. Advised to continue with low carbohydra te diet and exercise. Lifestyle modificati on recommende d. Low back pain 530845653 M54.5 Patient with chronic LBP. Undergone PT at [facility]. X-ray showed moderately severe facet arthropath y lower lumbar spine. Will consider referral to Physiatry if symptoms worsen, but patient would like to defer at this time. Screening for malignant neoplasm of colon 473345206 Z12.[address] Javed Brice at [facility] for colonoscop y in 2018 with adenomatou s polyp. Recommende d to repeat in 5 years. Records requested as well. [id number] Zane Haque MD , [facility], [address] [place] [address] 05/15/2020 09:33:39 05/16/2020 10:50:21 Benign essential hypertension 2957124 I10 Continue to work on diet, exercise, and lowering salt intake as discussed. No headaches. No dizziness. Previously had borderline BP. Has home BP machine. Encouraged to check. Discussed importance of taking medication s as prescribed . Check BP in the office in 1 month. Mixed hyperlipidemia 267 365742 E78.2 Continue to work on diet and exercise as discussed Gastroesop hageal reflux disease 530943856 K21.9 Stable on occasional use of Omeprazole . No current abdominal pain. Denies BRBPR or melena. Benign pro static hyperplasia 572885464 N40.0 Previous PSA within normal. No worsening symptoms of urinary obstructio n. Type 2 kayley betes mellitus without complication 861281290 E11.9 Recent Hgb A1c improved to POC A1c 6.5 () from 6.8 (08/2018). Previously taking Metformin intermitte ntly, educated to take daily. Advised to continue with low carbohydra te diet and exercise. Lifestyle modificati on recommende d. Low back pain 934432676 M54.5 Patient with chronic LBP. Undergone PT at [facility]. X-ray showed moderately severe facet arthropath y lower lumbar spine. Will consider referral to Physiatry if symptoms worsen, but patient would like to defer at this time. Screening for malignant neoplasm of colon 400118876 Z12.[address] Javed Brice at [facility] for colonoscop y in 2019 with adenomatou s polyp. Recommende d to repeat in 5 years. Records requested as well. [id number] Zane Haque MD , [facility], [address] [place] [address] 06/14/2020 09:38:08 06/14/2020 10:01:30 Benign essential hypertension 4064002 I10 Continue to work on diet, exercise, and lowering salt intake as discussed. No headaches. No dizziness. Previously had borderline BP. Has home BP machine. Encouraged to check. Discussed importance of taking medication s as prescribed . BP within normal today. Mixed hyperlipidemia 267 887958 E78.2 Continue to work on diet and exercise as discussed Gastroesop hageal reflux disease 945760157 K21.9 Stable on occasional use of Omeprazole . No current abdominal pain. Denies BRBPR or melena. Recent CBC within normal. Benign pro static hyperplasia 208136937 N40.0 Previous PSA within normal. No worsening symptoms of urinary obstructio n. Type 2 kayley betes mellitus without complication 135762179 E11.9 Recent Hgb A1c worsed to 7.9 (05/2020). Attributes to increased carbohydra te intake during the pandemic. Currently only taking Metformin 500mg daily. Would like to try a stricter lifestyle modificati on before make any adjustment to his medication . Will repeat in 3 months. If persistent ly elevated, will further increase the Metfromin dose. Admits to increased consumptio n of flan and ice cream. Will work on cutting these down. Advised to continue with low carbohydra te diet and exercise. Lifestyle modificati on recommende d. Low back pain 389982201 M54.5 Patient with chronic LBP. Undergone PT at [facility]. X-ray showed moderately severe facet arthropath y lower lumbar spine. Will consider referral to Physiatry if symptoms worsen, but patient would like to defer at this time. Screening for malignant neoplasm of colon 421556247 Z12.[address] Javed Brice at [facility] for colonoscop y in 2019 with adenomatou s polyp. Recommende d to repeat in 5 years. [id number] Antoinette Beth NP , [facility], [address] [place] [address] 07/07/2020 08:57:34 07/12/2020 13:32:07 Infection of sebaceous cyst 684427291 L72.[address] Haque who also examined pt = will refer for I and D today. [id number] Zane Haque MD , [facility], [address] [place] [address] 09/11/2020 11:02:03 10/05/2020 16:41:19 Adult health examination 305498404 Z00.00 See Risk Assessment and Lifestyle Change Counseling section above. Home/vehic le/sexual safety reviewed. States his last colonoscop y was 4 years ago at [facility] (Dr. Brice). Recommende d surveillan ce in 5 years. Routine eye exam and dental care discussed. Influenza, Tdap and PNA vaccines UTD. Counseling 469256748 Z71 .9 including cardiovasc ular risk reduction counseling Depression screening 171 399291 Z13.31 depression screening tool administer ed, entered into emr, scored and discussed, time greater than 7.5 minutes Screening for alcohol abuse 041155467 Z13.39 Type 2 kayley betes mellitus without complication 085050337 E11.9 Recent Hgb A1c 7 (08/2020). Attributes to increased carbohydra te intake during the pandemic. Currently only taking Metformin 500mg daily. Would like to try a stricter lifestyle modificati on before make any adjustment to his medication . Will repeat in 3 months. If persistent ly elevated, will further increase the Metfromin dose. Admits to increased consumptio n of flan and ice cream. Will work on cutting these down. Advised to continue with low carbohydra te diet and exercise. Lifestyle modificati on recommende d. Gastroesop hageal reflux disease 393898641 K21.9 Stable on occasional use of Omeprazole . No current abdominal pain. Denies BRBPR or melena. Recent CBC within normal. Benign ess ential hypertension 9316251 I10 Continue to work on diet, exercise, and lowering salt intake as discussed. No headaches. No dizziness. Previously had borderline BP. Has home BP machine. Encouraged to check. Discussed importance of taking medication s as prescribed . BP within normal today. Pain in right knee 01874 11918 09061 M25.561 C/o ongoing pain in R knee, hip, and foot. Dx w/arthriti s in back, discussed need for xray to r/o other disease process in this area. Enc otc analgesics prn for pain. f/u in 1month [id number] Angela Brooks, OD Eye Care, [address] [address] 07/27/2020 09:50:53 07/27/2020 16:01:25 Nuclear senile cataract 777371781 H25.13 mild OD>OS, not visually significan t. monitor annually, pt ed. Type 2 kayley betes mellitus without complication 422943797 E11.9 No diabetic retinopath y OU. pt ed on importance of good blood sugar control, monitor 1 yr with CEE Presbyopia 23346717 H52. 4 okay to cont with OTC readers [id number] Zane Haque MD , [facility], [address] [place] [address] 10/06/2020 14:43:23 10/06/2020 15:18:30 Pain in left knee 2464309015 90453 M25.562 Previously reported left knee pain. X-ray showed some patellar spurring only. Reports symptoms improved with NSAIDs. No locking or giving away. No ligamentou s instabilit y on exam. Otitis externa 7756283 H 60.90 Reports left ear discharge for 10 days. Recently went swimming in [employer]. No blood. No significan t pain but some muffled hearing. Clinical evidence of OE. Recommende d Cortispori n Otic drops. Advised to contact the clinic if no improvemen t in his symptom. [id number] ROLAND Elizabeth, [facility], [address] [place] [address] 03/19/2021 08:48:35 03/19/2021 09:37:17 Essential hypertension 23191381 I10 above goal todayenc fu at BP clinicfirs t visit with new PCP todayno CKDcont current meds for now; FU visit 3 mo Type 2 kayley betes mellitus without complication 647847001 E11.9 AiC above goal at 7.3will rpt 3 moif > 7 at fu will incr metforminE nc low carb diet, declines nutritFOot exam at [facility] routine eye exams Hypercholesterolemia 136 61792 E78.00 LDL NOT at goalgoal < 100start statin + baby ASA Shoulder pain 50743679 M 25.519 no injurybila teral pain, worse at nightplan PT; fu 3 mo, sooner if sxs worsen or dont improve [id number] ROLAND Elizabeth, [facility], [address] [place] [address] 06/15/2021 08:51:26 06/15/2021 09:47:47 Essential hypertension 98610382 I10 above goal todayno CKDUrged ck BP at home, bring in readings at fu in 6 wksIf persistent ly elevated (not just white coat) will do:24 h BP monitor/ and Sleep Study Obesity 313954940 E66.9 plan Nutrit visit at FUpt struggling cooksFU 6 wks on Wed am for Integ nutrition Type 2 kayley betes mellitus without complication 430703397 E11.9 slightly AiC above goal at 7.1Enc low carb diet, declines nutritFOot exam at [facility] routine [facility] exams Screening for disorder 433862442 Z13.6 Foot pain 27965077 M79.6 73 w. exertionr/ o claudicati onFU 6 wks [id number] Leena hansen PA-C , [facility], [address] [place] [address] 08/08/2021 08:48:33 08/08/2021 09:54:02 Intermittent claudication 92111045 I73.9 r/o with ABIcont baby ASA Benign ess ential hypertension 2611907 I10 BP at goal todayRecom mend checking 1-2 x week at homecontin ue current meds Type 2 kayley betes mellitus without complication 678259042 E11.9 slightly AiC above goal at 7.1Enc low carb diet, declines nutritFOot exam today: normal, no sign of neuropathy To sched eye exams next A1C due 09/2021, fu Sept Morbid obesity 641046238 E66.01 was unable to meet w. nutrit todaydiscu ssed carb monitoring , incr exercise [id number] Angela Brooks, OD Eye Care, [facility] [address] [place] [address] 10/04/2021 08:56:01 10/04/2021 11:19:13 Nuclear senile cataract 516893304 H25.13 mild OD>OS, not visually significan t. monitor annually, pt ed. 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 pt ed on importance of good blood sugar control, monitor 1 yr with CEE Presbyopia 11986580 H52. 4 okay to cont with OTC readers Dry eyes 375904366 H04.1 23 recommend hot compress 5 min qd. systane AT TID. [id number] Leena hansen PA-C , [facility], [address] [place] [address] 11/02/2021 13:09:57 11/02/2021 14:19:43 Essential hypertension 39536799 I10 above goal todayReche cked at slightly betterWi outreach pt next wk for home readings, if > 130/80 will change to enalapril/ and add HCTno CKD Mixed hyperlipidemia 267 766118 E78.2 on atorvastat inLDL at goal , < 100 Type 2 kayely betes mellitus without complication 203277481 E11.9 At Goal with metf and wpctF1L 6.7%: congrat on his effortsEnc low carb diet, declines nutritNo sign of neuropathy To sched eye examUrged flu vaccine Intermitte nt claudication 61731483 I73.9 cont baby ASAsxs not dailydiscu ssed referral to [facility] surgeon, prefers expect m anagement for now [id number] Kiarra Ingram PA-C , [facility], [address] [place] [address] 08/20/2022 10:23:22 08/20/2022 16:23:32 Adult health examination 173908667 Z00.[address] Javed Brice at [facility] for colonoscop y in 2019 with adenomatou s polyp. Recommende d to repeat in 5 years. Records requested as well. Depression screening 171 240730 Z13.31 depression screening tool administer ed Screening for alcohol abuse 951939084 Z13.39 Alcohol use screening tool administer ed Screening for malignant neoplasm of prostate 967394340 Z12.5 PSA testing for ages 55-69 risks and benefits discussed {{patient declines testing* t est ordered}}. Morbid obesity 195438989 E66.01 Declines nutrition consult.Ad vised heart healthy diet and exercise daily.He reports he uses a machine that shakes him for exercise.R ecommend daily walks when possible as well. Track steps.Coun t calories to stay under recommende d calorie count for height/elsa ght using free apps such as [employer]. Intermitte nt claudication 32351210 I73.9 cont baby ASAsxs not dailydiscu ssed referral to vas surgeon, prefers expect m anagement for now Hypercholesterolemia 136 93584 E78.00 Lipid panel checked: total chol 136, triglyc 109, HDL 45, LDL 69.2 Benign pro static hyperplasia 903516507 N40.0 Stable on Doxazosin 8 mg tablet. Previous PSA within normal. No worsening symptoms of urinary obstructio n. Gastroesop hageal reflux disease 695759674 K21.9 Stable on occasional use of Omeprazole . No current abdominal pain. Denies BRBPR or melena. Benign ess ential hypertension 5353008 I10 Continue to work on diet, exercise, and lowering salt intake as discussed. No headaches. No dizziness. Has borderline BP. Has home BP machine. Encouraged to check. Discussed importance of taking medication s as prescribed .Increasin g enalapril to 20 mg BID from QD dosing.Rec heck BP in the office in 1 month. 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 Pt agrees with POC. Counseling 278597147 Z71 .9 Provided education regarding patient safety, medication management , and identifica tion of community resources. Discussion regarding heart disease including symptom management , warning signs and when to call their provider. Cardiovasc ular risk reduction was discussed including benefits and risks of aspirin, exercise goals, healthy eating and healthy weight . Discussion greater than 7.5 minutes. Takes aspirin daily as prescribed by PCP. 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 monitor annually, pt ed. 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 pt ed on importance of good blood sugar control, monitor 1 yr with CEE Presbyopia 05965302 H52. 4 okay to cont with OTC readers Dry eyes 324270814 H04.1 23 recommend hot compress 5 min qd. systane AT TID. [id number] ROLAND Elizabeth, [facility], [address] [place] [address] 01/15/2023 08:50:51 01/15/2023 12:23:07 Type 2 diabetes mellitus without complication 966699842 E11.9 At Goal with metf and lcqzL1C 6.9%: congrat on his effortsEnc low carb diet, declines nutritNo sign of neuropathy To sched eye examVaccin es UTD Benign ess ential hypertension 4807033 I10 Discussed BP goals. Pt is at /not at goal. Reviewed sodium, cardiovasc ular exercise, maintainin g appropriat e weight. Monitor Bp at home. Continue w/ current meds.FU 6 m Signif family stress: 2 grandsons sick with cancer (ages 9 and 21) Foot callus 202394683 L8 4 bilateral , on soles, no infectiond iscussed pumice stone on damp skin and podiatry consult Fatigue 68182646 R53.83 Hypercholesterolemia 136 68135 E78.00 LDL not at goal, 69goal < 100start statin + baby ASA [id number] Baldemar Varma DPM Podiatry, [facility] [address] [place] [address] 03/13/2023 09:40:08 03/18/2023 14:29:21 Type 2 diabetes mellitus without complication 732710035 E11.49 Tinea pedis 3968437 B35. 3 [id number] Baldemar Varma DPM Podiatry, [facility] [address] [place] [address] 04/10/2023 09:56:23 04/17/2023 14:36:21 Type 2 diabetes mellitus without complication 993246887 E11.49 Tinea pedis 7926405 B35. 3 [id number] Leena hansen PA-C FP, [facility], [address] [place] [address] 06/16/2023 08:38:19 06/16/2023 09:51:47 Active or passive immunization 592187976 Z23 Benign ess ential hypertension 1188171 I10 Discussed BP goals. Pt is at /not at goal. Reviewed sodium, cardiovasc ular exercise, maintainin g appropriat e weight. Monitor Bp at home. 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 pt ed. 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 pt ed on importance of good blood sugar control, monitor 1 yr with CEE Cortical s enile cataract 26402881 H25.013 mild OU. not visually significan t. recommend observatio n. [id number] Angela Brooks, OD [facility], [address] [address] 10/29/2023 09:46:03 11/20/2023 13:08:45 Glaucoma suspect 211212914 H40.013 2' OHTN Tmax 26 OU, ONH moderate cupping, borderline segments of RNFL OD and OS but good overall avg RNFL, and also GCC is wnl OU. CCT avg OU does not increase risk of glc. VF: sup cluster defect c/w area of thin RNFL inferiorly on OCT. OS scattered defects do not appear clinically significan t. refer to oph. [id number] Angela Brooks, OD [facility], [address] [address] 11/11/2023 08:49:47 11/20/2023 13:28:54 Glaucoma suspect 065674138 H40.013 2' OHTN Tmax 26 OU, ONH moderate cupping, borderline segments of RNFL OD and OS but good overall avg RNFL, and also GCC is wnl OU. CCT avg OU does not increase risk of glc. VF: sup cluster defect c/w area of thin RNFL inferiorly on OCT. OS scattered defects that do not appear clinically significan t. pt ed. refer. [id number] Leena hansen PA-C , [facility], [address] [place] [address] 12/02/2023 11:40:51 12/02/2023 13:11:58 Adult health examination 939647130 Z00.00 Encouraged continuing routine exercise & well rounded dietSees Optometris t routinely/ enc dental examsVacci igor UTD Depression screening 171 198518 Z13.31 depression screening tool administer edneg Screening for alcohol abuse 010426510 Z13.39 Alcohol use screening tool administer edneg Type 2 kayley betes mellitus without complication 631919789 E11.49 At Goal with metf BID and kbftC9Y 6.9%: congrat on his effortsEnc low carb diet, declines nutritNo diabetic complicati ons; enc routine exerciseFU 6 m w A1C Benign ess ential hypertension 9275669 I10 Discussed BP goals. Pt is at /not at goal. Reviewed sodium, cardiovasc ular exercise, maintainin g appropriat e weight. Monitor Bp at home. Continue w/ current medSignif family stress: 2 grandsons sick with cancer (ages 9 and 21) Glaucoma 59906107 H40.9 per recent Eye exam 2023 ; to see Ophthalmol ogy Foot callus 504580211 L8 4 bilateral , on soles, no infectiond iscussed pumice stone on damp skin and podiatry consult Screening for malignant neoplasm of colon 691321283 Z12.11 last done at [facility], due for 5 yr repeat, last was 2019pt agreeableO rder placed... Counseled by member of primary health care team 762183880 Z71.9 Today we discussed ways to reduce your 10-year cardiovasc ular disease risk. Things that decrease risk for cardiovasc ular events include eating a diet high in fiber (fruits and vegetables ) and low in simple carbohydra anette (bread, rice, pasta, alcohol, potatoes), decreasing processed foods, limiting juice and alcohol, limiting saturated fats (butter, ice cream, and cheeses), and adding regular daily activity. Having blood pressure that is <130/80. Having well controlled cholestero l (LDL and triglyceri yann) by eating a healthy diet and taking medication s when necessary. Managing daily stress with meditation or yoga. You SHOULD continue taking daily aspirin. Hypercholesterolemia 136 76197 E78.00 LDL at goal, 69goal < 100continu e statin + Baby ASA for cardiovas risk reduction [id number] Baldemar Varma DPM Podiatry, [facility] [address] [place] [address] 04/29/2024 11:46:43 04/30/2024 14:18:20 Type 2 diabetes mellitus without complication 485273928 E11.49 Pain in right foot 64757 21876 30166 M79.671 [id number] EVGENY LONG NP , [facility], [address] [place] [address] 03/02/2024 10:11:47 03/02/2024 10:49:16 Type 2 diabetes mellitus without complication 776429038 E11.49 Patient is on Metformin 500mg twice daily; Continue on this regimenChe ck A1c in June.Encour age patient to continue monitoring blood glucose levels daily and maintain a balanced diet. Benign ess ential hypertension 6237823 I10 Continue Amlodipine and Hydrochlor othiazide. Encourage low sodium diet. Gastroesop hageal reflux disease 123585370 K21.9 Continue Omeprazole daily.Advi se patient to avoid eating 3 hours before bedtime and limit intake of trigger foods (spicy foods, tomatoes, hot chocolate) . Glaucoma 90368323 H40.9 Recent eye exam revealed the pressure is still elevated.W ill be prescribed eye drops during his next appointmen t on 03/19/24, according to the patient.Fo llow-up appointmen t with ophthalmol ogist scheduled for next month. Health Concerns Section Related Observation LastModified by Organization Detai ls LastModified Time None Recorded Concern Status LastModified by Organization Details LastModified Time None Recorded Advance Directives Directive None Recorded Payers Encounter Date Sequence Insurance Name Policy Number Policy Summers Covered Member ID Summers Member ID Guarantor Name 10/29/2023 1 [facility] [employer] - DOS ON OR AFTER 2022 - ONE CARE (MEDICARE REPLACEMENT/ADV ANTAGE - HMO) Lani Jarrett [id number] Lani Jarrett 11/11/2023 1 [facility] - DOS ON OR AFTER 2022 - ONE CARE (MEDICARE REPLACEMENT/ADV ANTAGE - HMO) Lani Jarrett [id number] Lani Jarrett 12/02/2023 1 [facility] - DOS ON OR AFTER 2022 - ONE CARE (MEDICARE REPLACEMENT/ADV ANTAGE - HMO) Lani Jarrett [id number] Lani Jarrett 03/02/2024 1 [facility] [employer] - DOS ON OR AFTER 2022 - ONE CARE (MEDICARE REPLACEMENT/ADV ANTAGE - HMO) Lani Jarrett [id number] Lani Jarrett 04/29/2024 1 [facility] [employer] - DOS ON OR AFTER 2022 - ONE CARE (MEDICARE REPLACEMENT/ADV ANTAGE - HMO) Lani Jarrett [id number] Lani Jarrett Notes Date Note Type Note Provider Name and Address Organization Details Recorded Time 11/11/2023 text/html 4 weeks f/u on g lc suspect OU, 2' OHTN Tmax 25, ONH moderate cupping, borderline segments of RNFL OD and OS but good overall avg RNFL, and also GCC is wnl OU. Angela Brooks, OD [address] [place] [address], [phone], [facility] [place] 11/13/2023 18:12:28 12/02/2023 text/html Physical Exam/MaleReported bypatient.[place] is here for a Wellness Visit. He describes his health status as good. Patient's health is better than last year.Risk Assessment and Lifestyle Change Counseling (Medicare)Reported bypatient.Coronary Artery Disease Risk Assessment:No Family history of coronary artery disease; No personal history of diabetes; No history of peripheral vascular disease, AAA, or carotid disease; No personal history of coronary artery disease; [place] 10 year risk Breast Cancer Risk Assessment:No family history of breast cancer; No history of breast cancer or dcis Colon Cancer Risk Assessment:No family history of pre cancerous colon polyps or cancer Lung Cancer Risk Assessment:Never smoked; No asbestos exposure Fracture Risk Assessment:No unexplained fracture; No use of corticosteroids; No anti-seizure medication; Normal bone density; Has adequate calcium intake; Taking Vitamin D supplement; No chronic use of proton pump inhibitors Cognitive/Behaviora l Risk Assessment:No personal history of mental illness; No family history of mental illness Functional Status:Patient does not have trouble hearing the television or radio when others do not.; Patient does not have to strain or struggle to hear/understand conversations; Patient does not need help with preparing meals, transportation, shopping, taking medicine, managing finances, or other activities of daily living.; Patient does not have visual loss that interferes with daily activities; Does not live alone; Patient was not unsteady and did not take longer than 30 seconds during the timed get up and go test.; Patient reports no falls in the past 6 months. Diet:Counseled about appropriate portion size; Counseled about eating a diet low in trans and saturated fats and high in fiber, fruits and vegetables; Counseled about appropriate calcium intake and good dietary sources of calcium.; Counseled about the importance of maintaining a positive calcium balance and taking 1000 iu Vitamin D daily.; Counseled about decreasing carbohydrates; Counseled about decreasing salt in diet; Discussed the value of a Mediterranean diet , and eating more fruits and vegetables Exercise counseling:Discusse d the importance of daily physical activity; Discussed the importance of weight bearing exercise Safety:Counseled about fall risk from throw rugs and the need for hand rails on steps and in bath; An audit alcohol screening was performed and scored. Patient was asked about alcohol use. Advised about risks of alcohol. Personal risk was assessed. Patient agreed to plan and given information about available resources if needed. Discussion including screening and scoring greater than 7.5 minutes.. Medicare wellness Patient with DM2 diagnosed 2019, HTN, BPH, GERD and LBP. Was informed DJD of lumbar spine back in [place] many years ago. Pain with prolonged walking, otherwise not too bothersome when not doing much. Undergone Physical Therapy at [facility]. No radiating symptoms. DM2: occasionally checks fasting glucose at home and notes it ranges about 140-150 typically.Hgb a1c 6.9 % as of last week.No diabetic complications No perineal numbness or tingling. Denies F/C/N/V. Denies CP/SOB/DRAKE. 5 kids all grownLives with at homeGrandsli w. leukemia/ signif fam stress Has night time urination about 2-3 times per night which is typical for him. No changes since last year. Previous PSA normal. No exercise intolerance.Has apt for diabetic retinal exam in september. Leena Ruiz PA-C [address] [place] [address], [phone], [facility] [place] 12/05/2023 02:39:04 03/02/2024 text/html f/u new PCP Chief complaint: The patient, with a history of diabetes, hypertension, and enlarged prostate, presents for a routine follow-up. Type 2 Diabetes: He reports his blood sugar is usually between 90 and 120, but was 154 this morning due to eating ice cream the previous day. He denies episodes of hypoglycemia or hyperglycemia. He has made dietary changes, including reducing portion sizes and limiting consumption of sweets and rice and beans. Currently taking metformin 500mg twice daily without complaints.Eye exam: performed, 02/19/24, which revealed borderline open angle glaucoma. He reports that he has a follow-up appointment on 03/19/24 with the [facility] where he will be prescribed medications. He reports no new changes to his vision. Continues with intermittent eye tearing attributed to the increased pressure. No other complications were found in the dilated eye exam.GERD: He reports experiencing heartburn, particularly at the last 2 weeks night, despite taking omeprazole daily. They deny changes in diet or eating habits. Colonoscopy: The patient also mentions a recent letter regarding a scheduled colonoscopy, which they were unsure about. They have an appointment at [facility]. Hypertension: He reports no complaints or symptoms such as headaches, blurry vision, shortness of breath, or chest pain. They are taking amlodipine twice daily and hydrochlorothiazide . They have reduced their sodium intake. EVGENY LONG, EDU [address] [place], [phone], [facility] [place] 03/02/2024 11:13:42 04/29/2024 text/html Patient with typ e 2 diabetes mellitus with peripheral neuropathy returns to the office complained of pain in his right foot. Patient with areas of patchy scaling tissue medial arch and heel of right foot has been prescribed multiple antifungal creams in the past. Patient states creams have not helped and areas are painful, but he does not experience any itching or burning sensation. Patient states he had accident injuring right foot many years ago for which he did not seek care at the time. Baldemar Varma DPM [address] [place], [phone], [facility] [place] 04/29/2024 12:23:50
[2024-05-17 09:00] VITALS: BP 132/76; PULSE 62; O2SAT 96; BMI 35.7
== END 2024-05-17 11:17 | disposition home or self-care (01) ==
LOC: HO.HGI 08:09
PROVIDERS: PCP Family Medicine; Visit Provider Nurse Practitioner Family
DX: Z01.818 Encounter for other preprocedural examination (principal); Z12.11 Encounter for screening for malignant neoplasm of colon; Z86.0101 Personal history of adenomatous and serrated colon polyps
CPT/HCPCS: 99024

== ENCOUNTER → 2024-05-17 08:09 | Outpatient (BNVA) | payer MEDICARE, SELFPAY | PROVIDERS: PCP Family Medicine; Visit Provider Nurse Practitioner Family | DX: Z01.818 Encounter for other preprocedural examination (principal); I10 Essential (primary) hypertension; E78.5 Hyperlipidemia, unspecified; Z86.0100 Personal history of colon polyps, unspecified | CPT/HCPCS: 99212 ==